=== PATIENT | male | born 1955 | race Caucasian/White ===

== ENCOUNTER 2024-07-11 09:10 | Outpatient (REF) | payer MEDICARE, SELFPAY ==
--- NOTE | ~2024-07-11 | XR_ITS ---
EXAMINATION: XR KNEE 3 VIEWS LEFT HISTORY: M25.562 - Pain in left knee COMPARISON: There are no prior studies available for comparison. FINDINGS: Three views of the left knee are submitted. The patient is status post total knee arthroplasty. The orthopedic elements are in anatomic alignment. There is no radiographic evidence of loosening. There is no fracture or dislocation. There is no significant joint effusion. XR/XR knee LT 3V IMPRESSION: Status post left total knee arthroplasty. Electronically signed by: Duane Daniel MD 07/12/2024 07:48 AM EDT
--- OUTSIDE RECORDS SUMMARY | 2024-07-12 09:48 | XMS_ITS ---
Author Organization [facility] Address [address] [place], [place] [id number] Care Team Providers Care Manager Law Name Role Phone JENS DUKE Unavailable [phone] Allergies No Known Allergies REASON FOR VISIT [...] Encounters Encounter Location Date Provider Diagnosis [facility] [address] [address] 11/08/2023 JENS DUKE Cellulitis of left leg [...] Notes * ROHAN WILKINSDOB: (68 yo M)Acc No.[id number]:11/08/2023 Progress Note Patient:ROHAN LIMON Appointment Provider:SIN Golden :1955???Age:68 Y???Sex:Male Sup ervising Provider:Alo Lyons DO Date:11/08/2023 Address:[address] [place], [place] [id number] Subjective: * Chief Complaints: * ???1. (L) [...] States that he recently flew here from [facility] a few days ago. He denies [...] * Procedure Codes:?[id number] ROCEP HIN 1 GRAM, [address] THER/PROPH/DIAG INJ, SC/IM(ADMINISTRATION) * Follow Up:?prn * * Sign off status: Completed true * Appointment Provider:?SIN Lyle Date:?11/08/2023 Generated for Printing/Faxing/eTransmitting on:?07/12/2024 09:47 AM EDT History and Physical Notes * HPI [...] States that he recently flew here from [facility] a few days ago. He denies [...]
--- OUTSIDE RECORDS SUMMARY | 2024-07-12 09:48 | XMS_ITS | Referral Summary ---
Author Organization [facility] Address [address] [place] [address] Care Team Providers Care Embroidery Patternmaker Name Role Phone Madhav Dave Primary Care Provider [phone] Allergies No known active allergies Medications lisinopriL [...] Insurance BCBS MCR REPLACE PPO Care Teams Embroidery Patternmaker Relationship Specialty Start Date End Date Madhav Dave [address] [place] [address] PCP - General Internal Medicine 08/03/21
--- OUTSIDE RECORDS SUMMARY | 2024-07-12 09:48 | XMS_ITS | Clinical Summary ---
Author Organization [facility] Address [address] [place] [address] Care Team Providers Care Electric Blanket Packer Name Role Phone Madhav Dave Primary Care Provider [phone] Allergies No known active allergies Medications lisinopriL [...] Insurance BCBS MCR REPLACE PPO Care Teams Electric Blanket Packer Relationship Specialty Start Date End Date Madhav Dave [address] [place] [address] PCP - General Internal Medicine 08/03/21
--- OUTSIDE RECORDS SUMMARY | 2024-07-12 09:48 | XMS_ITS | Clinical Summary ---
Author Organization [facility] it Address [id number] [place] [address] Care Team Providers Care Tin Can Feeder Name Role Phone Isaac Vale MD Primary Care Provider [phone] Surgical History Surgery Date Site/Laterality Comments SHOULDER [...] - 2023-2 5 season) 2023 Influenza Vaccine (Season Ended) 2024 RSV Immunization Adult Patie nts (1 - [...] age to complete this topic Care Teams Tin Can Feeder Relationship Specialty Start Date End Date Isaac Vale MD [address] [facility] ROBERT Gibbs PCP - General Internal Medicine 05/25/18
--- OUTSIDE RECORDS SUMMARY | 2024-07-12 09:48 | XMS_ITS | Clinical Summary ---
Author Organization [facility] Address [address] [place], [place] [id number] Care Team Providers Care Material Control Analyst Name Role Phone Isaac Vale MD Primary Care Provider [phone] Allergies No known active allergies Medications Medication [...] mg under the tongue. 0 01/01/2019 Active Belton-3 Fatty Acids (FISH OIL) 1000 MG CAPS [...] age to complete this topic Care Teams Material Control Analyst Relationship Specialty Start Date End Date Isaac Vale MD [address] [place] [id number] PCP - General Internal Medicine 05/25/18
--- OUTSIDE RECORDS SUMMARY | 2024-07-12 09:48 | XMS_ITS | Patient Health Record ---
Author Organization [facility] Address [address] [place], [place] [phone] Care Team Providers Care Shampoo Person Name Role Phone JENS DUKE Unavailable [phone] Allergies No Known Allergies Reason For Referral [...] Date Provider Diagnosis [facility] [address] [place] [phone] 11/08/2023 JENS DUKE Cellulitis of left leg L03.116 [facility] [address] [address] 11/10/2023 JENS DUKE Assessments Encounter Date Diagnosis [...] Insured Coverage Start Date Coverage End Date [facility] Commercial [address] [place] [address] [id number] 1 ROHAN WILKINS Self - patient is the insured Medications Administered Medication Instructions Date of Administration Dosage Notes ROCEPHIN 1 GRAM 11/08/2023 1 g Ashley BRAND 11/08/2023 12:29:29 PM EDT > Medical (General) History Medical History History ICD Code eye problems Heart Disease chicken pox allergies asthma
--- OUTSIDE RECORDS SUMMARY | 2024-07-12 09:49 | XMS_ITS ---
Author Organization [facility] Address [address] [place], [place] [address] Care Team Providers Care City Planning Aide Name Role Phone JENS DUKE [phone] REASON FOR VISIT pt has concerns about leg Encounters Encounter Location Date Provider Diagnosis [facility] [address] [place] [address] 11/10/2023 JENS DUKE Plan Of Treatment No Information Progress Notes * ROHAN WILKINSDOB: (68 yo M)Acc No.[id number]:11/10/2023 Patient:?ROHAN WILKINS :1955???Age:68 Y???Sex:Male Address:[address] [place] [address] [place], [address] * true * Date:? Generated for Printi elver/Fabiana/eTransmitting on:?07/12/2024 09:49 AM EDT
--- OUTSIDE RECORDS SUMMARY | 2024-07-12 09:49 | XMS_ITS | Data Portability ---
Author Organization [facility] Address [address] [place] [address] Assessment Encounter Date Assessment Date Assessment LastModified by Organization Details LastModified Time 07/21/2022 07/21/2022 Pleasant 67-year-old male history of left knee replacement June 19, [address] Ramos[address] Olivia dunlap he does admit he does not do his stretching exercises. This is likely overuse versus iliotibial band syndrome. I did offer him formal physical therapy which she would like a home exercise program instead. I did give him an AAOS iliotibial band packet. He can continue with his ibuprofen I would like to reevaluate him in 4 weeks if further work-up is indicated we will do so. I will also consider consultation with Dr. Camacho if necessary. The patient agrees with the above-noted plan. I did review his radiographs with him in detail. Indirect care and treatment in conjunction with Dr. Camacho Additional treatment plan discussed with the patient in detail included the following; - Provider focused nonsteroidal anti-inflammator y regimen (discussed were the pros, cons, benefits and risks as well as any black box warnings) - Analgesic pain medication for pain suppression (discussed were the pros, cons, benefits and risks as well as any black box warnings) - The use of topical pain relieving medication were discussed - The use of ice to decrease inflammation and pain - The use of assistive ambulatory devices for ambulation and fall prevention - Formal specific guided physical therapy program I reviewed my findings at length with the patient today. ? ? ?We discussed the nature and etiology of this problem along with current treatment options. We discussed the expected course and outcomes and what to expect. We also discussed risks and benefits. ? ? ?All of their questions were answered today, and there was exhibited understanding and comprehension of all that was discussed. 10 minutes were spent reviewing previous imaging and charting. ? ? ?10 minutes were spent obtaining patient history. ? ? ?5 minutes were spent on physical exam. ? ? ?5? ? ?minutes were spent explaining diagnosis and assessment. Today's documentation was made using voice recognition software. This note may contain grammatical errors secondary to the software. Not available 07/21/2022 12:21:41 07/28/2022 07/28/2022 This is a pleasant 67-year-old male who comes in with almost 1 week history of right shoulder pain status post working out with clinical exam findings of right shoulder weakness. We did discuss a diagnostic lidocaine injection which she was amenable to to see if there is any notable change regarding his range of motion. Which was then carried out. He was allotted approximately 15 minutes after the injection before he was retested which was essentially unchanged. Concern for rotator cuff tearing is present. I will send him for an MRI for further work-up for which then if surgically indicated I will have him see Dr. Bertrand. In the meantime I did give him a home exercise program to prevent stiffness of the shoulder which she is amenable to. We also discussed the nonsteroidal anti-inflammator y program which she will be on. He can augment with ice and heat for comfort. If his symptoms worsen he should contact my office. He agrees with the above-noted plan. Indirect care and treatment in conjunction with Dr. Camacho's Additional treatment plan discussed with the patient in detail included the following; - Provider focused nonsteroidal anti-inflammator y regimen (discussed were the pros, cons, benefits and risks as well as any black box warnings) - Analgesic pain medication for pain suppression (discussed were the pros, cons, benefits and risks as well as any black box warnings) - The use of topical pain relieving medication were discussed - The use of ice to decrease inflammation and pain - The use of assistive ambulatory devices for ambulation and fall prevention - Formal specific guided physical therapy program I reviewed my findings at length with the patient today. ? ? ?We discussed the nature and etiology of this problem along with current treatment options. We discussed the expected course and outcomes and what to expect. We also discussed risks and benefits. ? ? ?All of their questions were answered today, and there was exhibited understanding and comprehension of all that was discussed. 10 minutes were spent reviewing previous imaging and charting. ? ? ?10 minutes were spent obtaining patient history. ? ? ?5 minutes were spent on physical exam. ? ? ?5? ? ?minutes were spent explaining diagnosis and assessment. Today's documentation was made using voice recognition software. This note may contain grammatical errors secondary to the software. [email or web address] Not available 07/30/2022 08:25:06 Plan of Treatment Reminders Order Date Submit Date Provider Last Modified By Organization Details Last Modified Time Details Appointments None recorded. Lab None recorded. Referral None recorded. Procedures None recorded. Surgeries None recorded. Imaging MRI, shoulder, w/o contrast 2022 023 [email or web address] [facility], [address], [place], [address], 3 14:29:01 XR, shoulder, 2 or more view 2022 023 [facility], [address], [place], [address], 3 12:28:33 XR, knee, 3 view 2022 023 [email or web address] [facility], [address], [place], [address], 3 12:58:45 Medication Orders lidocaine HCl 10 mg/mL (1 %) injection solution 2022 023 [facility] #[id number], [address], [place], [address], 3 08:25:18 amoxicillin 500 mg tablet 2022 023 JAIME [facility] #[id number], [address] [place], [address], 3 12:22:51 Patient TargetsNo targets recorded. Patient Instructions Encounter Date Encounter Id Patient Instructions Last Modified By Organization Details Last Modified Time 07/21/2022 [id number] X-ray of the lef t knee reveals well-seated well-positioned total knee arthroplasty without sign of loosening. No acute bony abnormality. Not available 07/21/2022 12:22:04 07/28/2022 [id number] AP, Grashey and outlet view reveal the following; AC joint space narrowing, calcification between the AC joint, subtle calcification just superior to the greater tuberosity, well-maintained glenohumeral joint, type II acromion no acute bony abnormality observed. Not available 07/30/2022 08:22:24 Reason for Referral None Reported. 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 Procedures Surgical History Date Name Laterality Status Provider Name and Address Organization Details Recorded Time 3 Shoulder Joint/Bursa Asp & Inj completed CAROLE HURTADO PA-C [address], [place], [address], [place] [facility] 07/30/2022 08:24:13 9 total replacement of left knee joint completed Carline Garzon [facility] 07/21/2022 11:50:14 Imaging Results None recorded. Procedure Notes None recorded. Medical Equipment None Reported. Allergies No known drug allergies Medications Name Sig Start Date Stop Date Status Note LastModified by Organization Details LastModified Time amoxicillin 500 mg capsule TAKE 4 CAPS BY MOUTH 1 HOUR PRIOR TO DENTAL PROCEDURE active Not Available Not Available No t Available lidocaine HCl 10 mg/mL (1 %) injection solution Take 5 mL by injection route. 2022 active Not Available Not Available Not Avai lable acyclovir 400 mg tablet active Not Available Not Available Not Available amoxicillin 500 mg tablet Take 4 tablets 1 hour prior to dental procedure . 2022 active Not Available Not Available Not Avai lable trazodone 100 mg tablet TAKE 1&1/2 TABLETS BY MOUTH AT BEDTIME active Not Available Not Available No t Available nitroglycer in 0.4 mg sublingual tablet DISSOLVE 1 TABLET UNDER THE TONGUE EVERY 5 MINUTES NEEDED FOR CHEST PAIN. active Not Available Not Available No t Available clobetasol 0.05 % topical ointment APPLY TO AFFECTED AREA TWICE A DAY active Not Available Not Available No t Available fluticasone propionate 50 mcg/actuati on nasal spray,suspe nsion SPRAY 2 SPRAYS BY NASAL ROUTE DAILY active Not Available Not Available No t Available Advair HFA 115 mcg-21 mcg/actuati on aerosol inhaler active Not Available Not Available Not Available GaviLyte-G 236 gram-22.74 gram-6.74 gram-5.86 gram oral solution TAKE 8 OUNCE BY MOUTH DIRECTED PATIENT TO FOLLOW INSTRUCTI ONS GIVEN AT THE DR'S OFFICE active Not Available Not Available No t Available BinaxNOW COVID-19 Ag Self Test kit TEST DIRECTED TODAY 07/17 completed Not Available Not Available Not Available Vitals None Recorded Social History None recorded. Functional Status None recorded. Mental Status None recorded. Family History Nothing Reported. Medical History No medical history recorded. 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 6940647967 75164 M76.32 History of left total knee replacement 4799288571 907877 Z96.652 [id number] MD BEN Hornecarola [address] [address] 07/28/2022 15:19:11 07/28/2022 16:17:10 Pain of right shoulder joint 3887216686 2040232 M25.511 Shoulder g irdle weakness 774076999 M99.07 Health Concerns Section Related Observation LastModified by Organization Detai ls LastModified Time None Recorded Concern Status LastModified by Organization Details LastModified Time None Recorded Advance Directives Directive None Recorded Payers Encounter Date Sequence Insurance Name Policy Number Policy Nash Covered Member ID Nash Member ID Guarantor Name 07/21/2022 1 [place] [id number] Harlan Foss [id number] Harlan Foss 07/28/2022 1 [place] [id number] Harlan Foss [id number] Harlan Foss Notes Date Note Type Note Provider Name and Address Organization Details Recorded Time 07/21/2022 text/html This is a very pleasant 67-year-old male who underwent a left total knee arthroplasty by Dr. Ramos on June 19, 2018. Patient states that he is an avid walker walks approximately 7 miles a day. He states that approximately 2 weeks ago he may have tweaked his left knee for which she has had ongoing pain which she points to the outside extending up to the lateral aspect of his thigh. He states some of the pain has dissipated he is here for evaluation and treatment. He states takes ibuprofen which is giving him good symptomatic relief. He denies any mechanical symptoms. Denies any fevers or chills or warmth overlying the knee joint. CAROLE HURTADO PA-C [address] [place] [address], [address], [place] [facility] 07/21/2022 12:23:30 07/28/2022 text/html This is a very pleasant 67-year-old male chyus-jjwy-yytyiyfz who was working out at the gym last week doing chest, back, shoulders and triceps. States he felt a popping sensation in his right shoulder with notable weakness. He states he is unable to raise his arm above shoulder height he has ongoing pain and discomfort and notable weakness. He denies any neck symptoms or paresthesias. He is right-hand dominant. Here for evaluation treatment. Pertinent to his orthopedic history states he had prior surgery for bone spurs approximately 33 years ago. He states has been taking Advil which is giving him minimal relief. CAROLE HURTADO PA-C [address], [place], [address], [place] [facility] 07/30/2022 08:27:18
== END 2024-07-11 09:11 | disposition home or self-care (01) ==
LOC: HO.HOSX 09:10
PROVIDERS: Visit Provider Orthopaedic Surgery
DX: M25.562 Pain in left knee (principal)
CPT/HCPCS: 73562; 99212

== ENCOUNTER 2024-07-11 13:03 | Outpatient (AMB) | payer MEDICARE, SELFPAY ==
--- NOTE | 2024-07-11 13:08 | A.OFFVIS_ITS ---
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 He continues to walk for exercise. He denies any fevers or chills. He denies any locking or giving way. Allergies No Known Allergies Allergy (Verified 07/11/24 13:08) Medication List - Last Reconciled 07/11/24 by Aden Ramos MD albuterol sulfate 90 mcg/actuation inhalation aspirin (Adult Aspirin Regimen) 81 mg PO DAILY lvxoooz-dfdkafoshbjcf-xeiaijbz 250-250-65 mg (Excedrin Extra Strength) 2 tabs PO Q6H PRN atorvastatin 80 mg PO DAILY ibuprofen 800 mg PO DAILY PRN lisinopril 5 mg PO DAILY nemolizumab-ilto (Nemluvio) mg subcut trazodone mg PO PFSH Medical History Right shoulder pain Surgical History History of total left knee replacement Physical Exam Const Other: Well-nourished well-developed very friendly male awake alert and oriented x3 in no acute distress Extrem Other: Bilateral lower extremity examination shows good capillary refill, no skin lesions noted, normal sensation light touch Left knee examination shows that the surgical incision is well healed, no erythema, full active extension and flexion to 110 degrees, his patella tracks well Results Reviewed Results Reviewed: X-rays of the patient's left knee taken today show a total knee arthroplasty in good position with no signs of loosening, no acute bony abnormalities Assessment & Plan Assessment & Plan (1) Left knee pain: Code(s): M25.562 - Pain in left knee Category: Medical Plan Mr. Foss continues to do well after undergoing left total knee replacement surgery on 06/19/2018. He will continue his home exercise program. He does know to take antibiotics before any dental work. He will contact me prior to his annual follow-up appointment should any questions or concerns arise. Feel free to call me at any time should questions regarding his orthopedic management arise. I spent 20 minutes in reviewing the patient's records and imaging studies, seeing the patient and documenting in the medical record. Orders: Orders XR knee LT 3V Today M25.562 - Pain in left knee Coding Level of Care Code Est Pt Level 3 (91947) Complex EM visit Add On G2211 Diagnoses Left knee pain M25.562
--- OUTSIDE RECORDS SUMMARY | 2024-07-11 15:11 | XMS_ITS ---
Author Organization [facility] Address [address] [place], [place] [id number] Care Team Providers Care Marine Fitter Name Role Phone JENS DUKE Unavailable [phone] Allergies No Known Allergies REASON FOR VISIT (L) CALF PAIN Medications Medication SIG (Take, Route, Frequency, Duration) Notes Start Date End Date Status Nitroglycerin 0.4 MG Sublingual for 15 Days Active Fluticasone Propionate 50 MCG/ACT Nasal for 90 Days Active Bactrim DS 800-160 MG 1 tablet Orally Tw ice a day for 7 days 11/08/2023 11/15/2023 Active Atorvastatin Calcium 80 MG TAKE 1 TABLET BY MOUTH EVERY DAY Oral for 90 Days Active Aspirin 81 81 MG 1 tablet Orally Once a day Active Lisinopril 5 MG 1 tablet Orally Once a day Active Vital Signs Blood pressure systolic 122 mm Hg 11/08/19 24 Blood pressure diastolic 84 mm Hg 024 Heart Rate 68 /min 11/08/2023 Oximetry 99 % 11/08/2023 Temperature 98.2 degrees Fahrenheit 11/08/19 24 Height 72 in 11/08/2023 Weight 195 lbs 11/08/2023 BMI 26.44 kg/m2 11/08/2023 Weight-kg 88.45 kg 11/08/2023 Encounters Encounter Location Date Provider Diagnosis [facility] [address] [address] 11/08/2023 JENS DUKE Cellulitis of left leg L03.116 Assessments Encounter Date Diagnosis (ICD Code) Assessment Notes Treatment Notes Treatment Clinical Notes Section Notes 11/08/2023 Cellulitis of left leg (ICD-10 - L03.116) Keep skin clean and dry. Apply warm compresses for 10 minutes every 2-3 hours. Keep any areas of drainage covered with non-occlusive gauze dressings. Change dressings at least twice daily and more often as needed. If any worsening, i.e. fever, chills, streaking, go to ER immediately. Plan Of Treatment Medication Medication Name Sig Start Date Stop Date Notes Bactrim DS 800-160 MG 1 tablet Orally Tw ice a day for 7 days 11/08/2023 11/15/2023 Treatment Notes Assessment Notes Cellulitis of left leg Keep skin clean a nd dry. Apply warm compresses for 10 minutes every 2-3 hours. Keep any areas of drainage covered with non-occlusive gauze dressings. Change dressings at least twice daily and more often as needed. If any worsening, i.e. fever, chills, streaking, go to ER immediately. Pending Test Test Name Order Date CULTURE, AEROBIC AND ANAEROBIC W/GRAM ST AIN 11/08/2023 Next Appt Details Follow Up: prn, Reason: Medications Administered Medication Instructions Date of Administration Dosage Notes ROCEPHIN 1 GRAM 11/08/2023 1 g HROBAKAshley 11/08/2023 12:29:29 PM EDT > Progress Notes * ROHAN WILKINSDOB: (68 yo M)Acc No.[id number]:11/08/2023 Progress Note Patient:ROHAN LIMON Appointment Provider:SIN Golden :1955???Age:68 Y???Sex:Male Sup ervising Provider:Alo Lyons DO Date:11/08/2023 Address:[address] [place], [place] [id number] Subjective: * Chief Complaints: * ???1. (L) CALF PAIN. * HPI: ???HPI:? Pt presents today with complaints of pain in his left calf. States that it bega around 11/03/2023. States that there was an acute worsening last night. He states that there is associated with redness, warmth, and swelling. States that the pain is causing discomfort with walking. States that he had been doing yardwork prior to developing the symptoms and is unsure if that could be related. States that [facility]. He denies fever, chills, myalgias.De. * ROS:?All Other Systems:?Review of Systems (ROS)?See HPI for details,All others negative except those mentioned in HPI.? * Medical History:?Eye problem s, Heart Disease, Chicken pox, Allergies, Asthma. * Surgical History:?Denies Pas t Surgical History. * Family History:?Father: dece ased.?Mother: .? * Social History:?nonsmoker? alcohol none? caffeine occasionally exercise daily. * Medications:?Taking Lisinopr il 5 MG Tablet 1 tablet Orally Once a day , Taking Aspirin 81 81 MG Tablet Chewable 1 tablet Orally Once a day , Taking Atorvastatin Calcium 80 MG Tablet TAKE 1 TABLET BY MOUTH EVERY DAY Oral , Taking Fluticasone Propionate 50 MCG/ACT Suspension Nasal , Taking Nitroglycerin 0.4 MG Tablet Sublingual Sublingual , Medication List reviewed and reconciled with the patient * Allergies:?N.K.D.A. Objective: * Vitals:?Staff: , BP:122/84 mm Hg, HR:68/min, Oxygen sat %:99%, Temp:98.2F, Ht: 72 in, Wt:195lbs, BMI:26.44Index, Wt-k.45 kg. * Examination: ???General Examination: ?GENERAL APPEARANCE?pleasant, well nourished, in no acute distress.?HEAD?normocephalic, atraumatic.?NOSE?external nose unremarkable.?SKIN?warm and dry, left lateral lower leg erythematous, warm, and TTP. Indurated with small wound opening actively draining mixture of bloody and purulent discharge.?LUNGS?respirations non-labored.?RECTAL:?not examined.?NEUROLOGIC:?alert and oriented, cognitive exam grossly normal, cooperative with exam.?PSYCH:?cooperative with exam, cognitive function intact, good eye contact, judgement and insight good.? Assessment: * Assessment: 1.?Cellulitis of left leg - L03.116 (Primary)??? Plan: * Treatment: Notes: Keep skin clean and dry. Apply warm compresses for 10 minutes every 2-3 hours. Keep any areas of drainage covered with non-occlusive gauze dressings. Change dressings at least twice daily and more often as needed. If any worsening, i.e. fever, chills, streaking, go to ER immediately.? * Therapeutic Injections:? ROCEPHIN 1 GRAM : 1 g (Route: Intramuscular) given by JATINDER BRAND on left gluteus (Cellulitis of left leg) * Procedure Codes:?J0696 ROCEP HIN 1 GRAM, 93475 THER/PROPH/DIAG INJ, SC/IM(ADMINISTRATION) * Follow Up:?prn * * Sign off status: Completed true * Appointment Provider:?SIN Lyle Date:?11/08/2023 Generated for Printing/Faxing/eTransmitting on:?07/11/2024 03:11 PM EDT History and Physical Notes * HPI (History of Present Illness) Category Sub-Category Detail Notes Category Not es HPI Pt presents tod ay with complaints of pain in his left calf. States that it bega around 11/03/2023. States that there was an acute worsening last night. He states that there is associated with redness, warmth, and swelling. States that the pain is causing discomfort with walking. States that he had been doing yardwork prior to developing the symptoms and is unsure if that could be related. States that [facility]. He denies fever, chills, myalgias.De Examination Category Sub-Category Detail Notes Category Not es General Examination GENERAL APPEARANCE pleasant, well nourished, in no acute distress HEAD normocephalic, atrau matic NOSE external nose unrema rkable LUNGS respirations non-lab ored NEUROLOGIC: alert and oriented, cognitive exam grossly normal, cooperative with exam SKIN warm and dry, left l ateral lower leg erythematous, warm, and TTP. Indurated with small wound opening actively draining mixture of bloody and purulent discharge RECTAL: not examined PSYCH: cooperative with exa m, cognitive function intact, good eye contact, judgement and insight good
--- OUTSIDE RECORDS SUMMARY | 2024-07-11 15:11 | XMS_ITS ---
Author Name [facility] Organization Unknown Encounters Encounter Type Encounter Reason Primary Diagnosis Location Date Ambulatory [facility] 08/06/2022 Ambulatory [facility] 08/03/2022 Ambulatory [facility] 08/03/2022 Ambulatory [facility] 07/28/2022 Ambulatory [facility] 07/28/2022 Ambulatory [facility] 07/27/2022 Ambulatory [facility] 07/21/2022 Ambulatory [facility] 07/21/2022 Ambulatory [facility] 07/21/2022 Ambulatory [facility] 07/19/2022
--- OUTSIDE RECORDS SUMMARY | 2024-07-11 15:12 | XMS_ITS | Clinical Summary ---
Author Organization [facility] Address [address] [place], [place] [id number] Care Team Providers Care Marine Diver Name Role Phone Isaac Vale MD Primary Care Provider [phone] Allergies No known active allergies Medications Medication Sig Dispensed Refills Start Date End Date Status bupivacaine (MARCAINE) 0.25 % injection 2 mL. 0 03/06/2018 Active amoxicillin (AMOXIL) 500 MG tablet Take 4 tabs 1 hour prior to dental appointment, colonoscopy or surgical procedure 20 tablet 3 07/05/2018 Active Scopolamine (TRANSDERM-SCOP) 1 MG/3DAYS Place 1 patch onto the skin every third day. 10 patch 1 07/06/2018 Active ammonium lactate (LAC-HYDRIN) 12 % lotion 1 application to affected area 0 09/19/2015 Active halobetasol (ULTRAVATE) 0.05 % ointment 1 application to affected area 0 09/26/2015 Active hydrOXYzine (ATARAX) 25 MG tablet TAKE 1 TABLET BY MOUTH EVERY 8 HOURS NEEDED FOR ITCHING 0 08/28/2015 Active lidocaine HCl (XYLOCAINE) 1 % injection soln 4 mL. 0 03/06/2018 Active nitroglycerin (NITROSTAT) 0.[address] 0.4 mg under the tongue. 0 01/01/2019 Active Monroe-3 Fatty Acids (FISH OIL) 1000 MG CAPS 1 capsule with a meal 0 Active Triamcinolone Acetonide (TRIESENCE) 40 MG/ML SUSP intraocular suspension 80 mg. 0 03/06/2018 Active acyclovir (ZOVIRAX) 400 MG tablet Take 400 mg by mouth. 0 12/20/2017 Active aspirin (GOODSENSE ASPIRIN) 325 MG tablet Take 325 mg by mouth. 0 Active atorvastatin (LIPITOR) tablet 80 mg Take 80 mg by mouth. 0 01/01/2019 Active fexofenadine-pseudo ephedrine (JAY-D) 60-120 MG per tablet 1 tablet BID PRN 0 Activ e fluticasone (FLONASE) 50 MCG/ACT nasal spray spray or apply 2 sprays inside Nose. 0 04/01/2017 Active lisinopril (PRINIVIL,ZESTRIL) tablet 10 mg Take 10 mg by mouth. 0 01/01/2019 Active traZODone (DESYREL) 100 MG tablet TAKE 1 AND 1/2 TABLETS BY MOUTH EVERY EVENING 0 10/15/2017 Active diclofenac (VOLTAREN) 75 MG EC tablet Take 75 mg by mouth. 0 01/09/2018 Active atorvastatin (LIPITOR) tablet 80 mg TAKE 1 TABLET BY MOUTH ONCE A DAY 0 10/21/2017 Active Active Problems Problem Noted Date Diagnosed Date Knee stiffness, left 01/03/2019 Chronic pain of left knee 08/16/2018 Social History Tobacco Use Types Packs/Day Years Used Date Smoking Tobacco: Never Smokeless Tobacco: Never Sex and Gender Information Value Date Recorded Sex Assigned at Not on file Gender Identity Not on file Sexual Orientation Not on file Last Filed Vital Signs Vital Sign Reading Time Taken Comments Blood Pressure - - Pulse - - Temperature - - Respiratory Rate - - Oxygen Saturation - - Inhaled Oxygen Concentration - - Weight 89.4 kg (197 lb) 06/06/2018 2:57 PM EST Height 182.9 cm (6') 06/06/2018 2:57 PM EST Body Mass Index 26.72 06/06/2018 2:57 PM EST Plan of Treatment Health Maintenance Due Date Last Done Comments Hepatitis C Screening 1955 COVID-19 Vaccine (#1) 1956 Depression Screening 1968 BMI Counseling 1974 Preventative Health Evaluation 1974 Colon Cancer Screening (Colonoscopy) 2001 Shingrix-Zoster Vaccine (1 o f 2) 2006 DTap / Tdap / Td (1 - Tdap) 02/09/2014 11/0 10/2013, 10/02/2002 Fall Risk Assessment 2021 Pneumococcal Vaccine (2 of 2 - PCV) 2021 09/05/2007 Influenza Vaccine (#1) 2023 RSV Adult > 60+ Yrs or (1 - 1-dose 75+ series) 06/11/2031 Hepatitis B Vaccines Aged Out No long er eligible based on patient's age to complete this topic RSV Ped < 20 months Aged Out No longe r eligible based on patient's age to complete this topic Care Teams Marine Diver Relationship Specialty Start Date End Date Isaac Vale MD [address] [place] [id number] PCP - General Internal Medicine 05/25/18
--- OUTSIDE RECORDS SUMMARY | 2024-07-11 15:12 | XMS_ITS | Clinical Summary ---
Author Organization [facility] it Address [address] [place] [address] Care Team Providers Care Maintenance Groundskeeper Name Role Phone Isaac Vale MD Primary Care Provider [phone] Surgical History Surgery Date Site/Laterality Comments SHOULDER SURGERY PROCEDURE:SHOULDER SURGERY FOOT SURGERY PROCEDURE:FOOT SURGERY KNEE SURGERY PROCEDURE:KNEE SURGERY Medical History Medical History Date Comments Asthma DX:Asthma Heart disease DX:Heart disease Social History Tobacco Use Types Packs/Day Years Used Date Smoking Tobacco: Never Smokeless Tobacco: Never Sex and Gender Information Value Date Recorded Sex Assigned at Not on file Legal Sex Male 9:10 PM EST Gender Identity Not on file Sexual Orientation Not on file Obstetrics History Plan of Treatment Health Maintenance Due Date Last Done Comments DTaP,Tdap,and Td Vaccines (1 - Tdap) 06/11/1975 Pneumococcal Vaccine: 50+ Ye ars (1 of 1 - PCV) 2006 Zoster Vaccines (1 of 2) 2006 COVID-19 Vaccine ( - 2023-2 5 season) 2023 Influenza Vaccine (#1) 2023 RSV Immunization Adult Patie nts (1 - 1-dose 75+ series) 06/11/2031 HIB Vaccines Aged Out No longer eligi ble based on patient's age to complete this topic HPV Vaccines Aged Out No longer eligi ble based on patient's age to complete this topic Hepatitis A Vaccines Aged Out No long er eligible based on patient's age to complete this topic Hepatitis B Vaccines Aged Out No long er eligible based on patient's age to complete this topic IPV Vaccines Aged Out No longer eligi ble based on patient's age to complete this topic MMR Vaccines Aged Out No longer eligi ble based on patient's age to complete this topic Meningococcal ACWY Vaccine Aged Out N o longer eligible based on patient's age to complete this topic Meningococcal B Vaccine Aged Out No l onger eligible based on patient's age to complete this topic RSV Immunization Patients Un ishmael 20 months Aged Out No longer eligible b ased on patient's age to complete this topic Varicella Vaccines Aged Out No longer eligible based on patient's age to complete this topic Care Teams Maintenance Groundskeeper Relationship Specialty Start Date End Date Isaac Vale MD [address] [facility] ROBERT Gibbs PCP - General Internal Medicine 05/25/18
--- OUTSIDE RECORDS SUMMARY | 2024-07-11 15:12 | XMS_ITS | Patient Health Record ---
Author Organization [facility] Address [address] [place], [place] [id number] Care Team Providers Care Interpreter And Translator Name Role Phone JENS DUKE Unavailable [phone] Allergies No Known Allergies Reason For Referral No Information Medications Medication SIG (Take, Route, Frequency, Duration) Notes Start Date End Date Status Nitroglycerin 0.4 MG Sublingual for 15 Days Active Fluticasone Propionate 50 MCG/ACT Nasal for 90 Days Active Atorvastatin Calcium 80 MG TAKE 1 TABLET BY MOUTH EVERY DAY Oral for 90 Days Active Aspirin 81 81 MG 1 tablet Orally Once a day Active Lisinopril 5 MG 1 tablet Orally Once a day Active Vital Signs Heart Rate 68 /min 11/08/2023 Temperature 98.2 degrees Fahrenheit 11/08/2023 Oximetry 99 % 11/08/2023 Blood pressure diastolic 84 mm Hg 11/08/2023 Weight-kg 88.45 kg 11/08/2023 Height 72 in 11/08/2023 Blood pressure systolic 122 mm Hg 11/08/2023 Weight 195 lbs 11/08/2023 BMI 26.44 kg/m2 11/08/2023 Encounters Encounter Location Date Provider Diagnosis [facility] [address] [place] [phone] 11/08/2023 JENS DUKE Cellulitis of left leg L03.116 [facility] [address] [address] 11/10/2023 JENS DUKE Assessments Encounter Date Diagnosis (ICD Code) Assessment [...] go to ER immediately. Plan Of Treatment Pending Test Test Name Order Date CULTURE, AEROBIC AND ANAEROBIC W/GRAM ST AIN 11/08/2023 Insurance Providers Payer Name Payer Address Payer Phone Subscriber Number Group Number Insured Name Patient Relationship to Insured Coverage Start Date Coverage End Date [facility] Commercial [address] [place] [address] [id number] ROHAN WILKINS Self - patient is the insured Medications Administered Medication Instructions Date of Administration Dosage Notes ROCEPHIN 1 GRAM 11/08/2023 1 g Ashley BRAND 11/08/2023 12:29:29 PM EDT > Medical (General) History Medical History History ICD Code eye problems Heart Disease chicken pox allergies asthma
--- OUTSIDE RECORDS SUMMARY | 2024-07-11 15:12 | XMS_ITS | Referral Summary ---
Author Organization [facility] Address [address] [place] [address] Care Team Providers Care Immigration Coordinator Name Role Phone Madhav Dave Primary Care Provider [phone] Allergies No known active allergies Medications lisinopriL (PRINIVIL,ZESTRI L) 5 mg tablet Take 5 mg by mouth once a day. Active atorvastatin (LIPITOR) 40 mg tablet Take 40 mg by mouth once a day. Active acyclovir (ZOVIRAX) 400 mg tablet Take 400 mg by mouth 2 times a day. Active traZODone (DESYREL) 100 mg tablet Take 100 mg by mouth nightly. Active aspirin 81 mg EC tablet Take 81 mg by mouth daily. Active Active Problems No known active problems Social History Tobacco Use Types Packs/Day Years Used Date Smoking Tobacco: Never Smokeless Tobacco: Never Alcohol Use Standard Drinks/Week Comments Not Currently 0 (1 standard drink = 0.6 oz pur e alcohol) Sex and Gender Information Value Date Recorded Sex Assigned at Not on file Legal Sex Male 1:44 PM EDT Gender Identity Not on file Sexual Orientation Not on file Last Filed Vital Signs Vital Sign Reading Time Taken Comments Blood Pressure 140/74 08/14/2021 3:31 PM EDT Pulse 81 08/14/2021 3:31 PM EDT Temperature - - Respiratory Rate - - Oxygen Saturation - - Inhaled Oxygen Concentration - - Weight 91 kg (200 lb 9.6 oz) 08/14/2021 3:31 PM EDT Height 180.3 cm (5' 11 ) 08/14/2021 3:31 PM EDT Body Mass Index 27.98 08/14/2021 3:31 PM EDT Plan of Treatment Not on file Insurance BCBS MCR REPLACE PPO Care Teams Immigration Coordinator Relationship Specialty Start Date End Date Madhav Dvae [address] [place] [address] PCP - General Internal Medicine 08/03/21
--- OUTSIDE RECORDS SUMMARY | 2024-07-11 15:12 | XMS_ITS | Clinical Summary ---
Author Organization [facility] Address [address] [place] [address] Care Team Providers Care Tablet Repair Name Role Phone Madhav Dave Primary Care Provider [phone] Allergies No known active allergies Medications lisinopriL [...] Active Active Problems No known active problems Family History Relation Name Status Comments Father Mother Social History Tobacco Use Types Packs/Day Years [...] 08/14/2021 3:31 PM EDT Plan of Treatment Health Maintenance Due Date Last Done Comments Cologuard 1955 Colon Cancer Screening 1955 Colonoscopy 1955 FOBT / Fit Test 1955 Sigmoidoscopy 1955 DTaP,Tdap,and Td Vaccines (1 - Tdap) 02/09/2014 02/08/2014, 10/02/2002 Zoster Vaccines (2 of 2) 09/09/2021 07/15/2021 Pneumococcal Vaccine: 50+ Years (2 of 2 - PCV) 07/10/2022 07/10/2021, 09/05/2007 COVID-19 Vaccine ( season) 2023 07/23/2021, 01/22/2021, 07/16/2020, Additional history exists Alcohol/Substance Use Screening 04/04/2024 Depression Screening and Follow-Up 04/04/2024 Health Care Proxy Review 04/04/2024 Social Drivers of Health Annual Screening 04/04/2024 Influenza Vaccine (Season Ended) 2024 RSV Vaccine (60+ years old and patients) (1 - 1-dose 75+ series) 06/11/2031 Hepatitis C Screening Completed 07/10/2021 Hepatitis B Vaccines Aged Out No long er eligible based on patient's age to complete this topic Insurance BCBS MCR REPLACE PPO Care Teams Tablet Repair Relationship Specialty Start Date End Date Madhav Dave [address] [place] [address] PCP - General Internal Medicine 08/03/21
--- OUTSIDE RECORDS SUMMARY | 2024-07-11 15:12 | XMS_ITS ---
Author Organization [facility] Address [address] [place], [place] [id number] Care Team Providers Care Space Engineer Name Role Phone JENS DUKE [phone] REASON FOR VISIT pt has concerns about leg Encounters Encounter Location Date Provider Diagnosis [facility] [address] [place] [phone] 11/10/2023 JENS DUKE Plan Of Treatment No Information Progress Notes * ROHAN WILKINSDOB: (68 yo M)Acc No.[id number]:11/10/2023 Patient:?ROHAN WILKINS :1955???Age:68 Y???Sex:Male Address:[address] [place] [address] [place], [id number] * true * Date:? Generated for Printi elver/Phamg/eTransmitting on:?07/11/2024 03:11 PM EDT
== END 2024-07-11 13:51 | disposition home or self-care (01) ==
LOC: HO.HOS 13:07
PROVIDERS: PCP Registered Nurse; Visit Provider Orthopaedic Surgery
DX: M25.562 Pain in left knee (principal); Z96.652 Presence of left artificial knee joint
CPT/HCPCS: 99213; G2211

== ENCOUNTER → 2024-07-11 13:12 | Outpatient (BNV) | payer MEDICARE, SELFPAY | PROVIDERS: Visit Provider Radiology Diagnostic Radiology | DX: Z96.652 Presence of left artificial knee joint (principal) | CPT/HCPCS: 73562 ==